=== PATIENT | female | born 1995 | race Caucasian/White ===

== ENCOUNTER 2016-06-06 09:30 | Emergency (ER) | payer OTHER ==
[2016-06-06] MEDS ORDERED: LORazepam 2 MG/ML INJ IVP ONE ×2 (09:53→10:56)
[2016-06-06] MEDS ORDERED: NS 1,000 ML IV ONE ×2 (09:53→10:56)
[2016-06-06] MEDS ORDERED: ONDANSETRON 4 MG/2 ML VIAL IVP ONE ×2 (09:53→11:30)
--- NOTE | 2016-06-06 10:06 | EDPHY ---
H & P Smoking Status: Current some day smoker Time Seen by Provider: 06/06/16 09:38 HPI/ROS: CHIEF COMPLAINT: Vomiting, hyperventilating HISTORY OF PRESENT ILLNESS: 20-year-old female presents to the emergency department with multiple episodes of vomiting since early this morning. The patient states that she drank alcohol until about 1:30 a.m.. She began vomiting few hours later. She states this has happened to her in the past when she drinks alcohol. She does admit to smoking marijuana as well. No other illicit drug use. She denies chest pain or difficulty breathing. Denies abdominal pain. She denies diarrhea. She does not think she has urinated since yesterday. She feels extremely anxious. Her hands are cramping and she feels that they are tingly and numb. No headache. No reported trauma. No blood in her emesis. No melena. REVIEW OF SYSTEMS: Constitutional: No fever, no chills. Eyes: No double or blurry vision. ENT: No sore throat. Respiratory: No cough, no shortness of breath. Cardiac: No chest pain. Gastrointestinal: Vomiting as above. No diarrhea. No abdominal pain. Genitourinary: No dysuria. Musculoskeletal: No neck or back pain. Skin: No rashes. Neurological: No headache. (Ronna Hurt M) Past Medical/Surgical History: Negative (Licha,Ronna M) Social History: Single and lives in [place] (Ronna Hurt M) Physical Exam: General Appearance: Alert, extremely anxious, hyperventilating. Vital signs are stable. Mother and father at bedside. Eyes: Pupils equal and round. Extraocular motions are all intact. ENT: Mouth: Mucous membranes very dry. Respiratory: No wheezing, rhonchi, or rales, lungs are clear to auscultation. Cardiovascular: Regular rate and rhythm. Gastrointestinal: Abdomen is soft and nontender, no masses, no rebound or guarding, bowel sounds normal. Neurological: Alert and oriented x 3, cranial nerves II through XII grossly intact Skin: Warm and dry, no rashes. Musculoskeletal: Nontender to palpate along the cervical, thoracic or lumbar spine. Neck is supple. Extremities: Full range of motion and no peripheral edema. Psychiatric: Patient is oriented X 3, there is no agitation. (LichaRonna M) Constitutional: Initial Vital Signs Temperature (C) 36.7 C 06/06/16 09:33 Heart Rate 92 06/06/16 09:33 Respiratory Rate 20 06/06/16 09:33 Blood Pressure 102/70 06/06/16 09:33 O2 Sat (%) 99 06/06/16 09:33 O2 Delivery Mode Room Air Allergies/Adverse Reactions: No Known Allergies Allergy (Unverified 06/06/16 09:32) Home Medications: Medication Instructions Recorded Ondansetron Odt [Zofran Odt] 4 mg PO Q4PRN #8 tab 06/06/16 Medical Decision Making ED Course/Re-evaluation: 20-year-old female presents to the emergency department with multiple episodes of vomiting. An IV was established and the patient was given 4 mg Zofran IV as well as 0.5 mg of Ativan since she was hyperventilating. These medications were repeated as well as 2 L of IV normal saline. The patient was given multiple attempts at p.o. challenge. She continued to vomit. She was given 10 mg of Reglan IV and was feeling much better. She was tolerating p.o. fluids upon discharge is comfortable being discharged home. Laboratory studies are unremarkable. I do not think imaging studies are necessary. She has no abdominal pain. She is being discharged home with her mother. (Ronna Hurt) Differential Diagnosis: Including but not limited to gastritis, dehydration, gastroenteritis, acute appendicitis (Ronna Hurt) Other Provider: PHYSICIAN DOCUMENTATION: The patient was evaluated and managed by the Physician [facility]. My co- signature indicates that I have reviewed this chart and I agree with the findings and plan of care as documented. I am the secondary supervising physician. (Akshat Santiago) - Data Points Laboratory Results: Laboratory Results 06/06/16 10:07 06/06/16 10:07 06/06/16 06/06/16 10:07 10:07 WBC 9.21 10^3/uL 10^3/uL (3.80-9.50) RBC 4.51 10^6/uL 10^6/uL (4.18-5.33) Hgb 14.6 g/dL g/dL (12.6-16.3) Hct 41.0 % % (38.0-47.0) MCV 90.9 fL fL (81.5-99.8) MCH 32.4 pg pg (27.9-34.1) MCHC 35.6 g/dL g/dL (32.4-36.7) RDW 11.8 % % (11.5-15.2) Plt Count 285 10^3/uL 10^3/uL (150-400) MPV 9.6 fL fL (8.7-11.7) Neut % (Auto) 73.0 % % (39.3-74.2) Lymph % (Auto) 21.5 % % (15.0-45.0) [place] % (Auto) 4.5 % % (4.5-13.0) Eos % (Auto) 0.2 % L % (0.6-7.6) Baso % (Auto) 0.5 % % (0.3-1.7) Nucleat RBC Rel Count 0.0 % % (0.0-0.2) Absolute Neuts (auto) 6.72 10^3/uL H 10^3/uL (1.70-6.50) Absolute Lymphs (auto) 1.98 10^3/uL 10^3/uL (1.00-3.00) Absolute Monos (auto) 0.41 10^3/uL 10^3/uL (0.30-0.80) Absolute Eos (auto) 0.02 10^3/uL L 10^3/uL (0.03-0.40) Absolute Basos (auto) 0.05 10^3/uL 10^3/uL (0.02-0.10) Absolute Nucleated RBC 0.00 10^3/uL 10^3/uL (0-0.01) Immature Gran % 0.3 % % (0.0-1.1) Immature Gran # 0.03 10^3/uL 10^3/uL (0.00-0.10) Sodium 138 mEq/L mEq/L (134-144) Potassium 3.7 mEq/L mEq/L (3.5-5.2) Chloride 104 mEq/L mEq/L (97-110) Carbon Dioxide 18 mEq/l L mEq/l (22-31) Anion Gap 16 mEq/L mEq/L (8-16) BUN 11 mg/dL mg/dL (7-23) Creatinine 0.7 mg/dL mg/dL (0.6-1.0) Estimated GFR > 60 Glucose 111 mg/dL H mg/dL (70-100) Calcium 10.0 mg/dL mg/dL (8.5-10.4) Medications Given: Discontinued Medications Sodium Chloride (Ns) 1,000 mls @ 0 mls/hr IV ONCE ONE PRN Reason: Wide Open Stop: 06/06/16 09:54 Last Admin: 06/06/16 10:09 Dose: 1,000 mls Sodium Chloride (Ns) 1,000 mls @ 0 mls/hr IV ONCE ONE PRN Reason: Wide Open Stop: 06/06/16 10:57 Last Admin: 06/06/16 11:14 Dose: 1,000 mls Lorazepam (Ativan Injection) 0.5 mg IVP EDNOW ONE Stop: 06/06/16 09:54 Last Admin: 06/06/16 10:15 Dose: 0.5 mg Lorazepam (Ativan Injection) 0.5 mg IVP EDNOW ONE Stop: 06/06/16 10:57 Last Admin: 06/06/16 11:15 Dose: 0.5 mg Metoclopramide HCl (Reglan Injection) 10 mg IVP EDNOW ONE Stop: 06/06/16 12:48 Last Admin: 06/06/16 12:56 Dose: 10 mg Ondansetron HCl (Zofran) 4 mg IVP EDNOW ONE Stop: 06/06/16 09:54 Last Admin: 06/06/16 10:09 Dose: 4 mg Ondansetron HCl (Zofran) 4 mg IVP EDNOW ONE Stop: 06/06/16 11:31 Last Admin: 06/06/16 11:32 Dose: 4 mg Departure - Departure Disposition: Home, Routine, Self-Care Clinical Impression: Dehydration Gastritis Qualifiers: Gastritis type: unspecified gastritis Chronicity: acute Gastritis bleeding: without bleeding Qualified Code(s): K29.00 - Acute gastritis without bleeding Condition: Good Instructions: Dehydration (ED), Acute Nausea and Vomiting (ED) Additional Instructions: Clear liquids and slowly advance diet as tolerated. Zofran as needed for nausea. Return to the Emergency Department immediately for increasing pain, fever, vomiting, or if not completely better in 8-12 hours. Referrals: Boni Santana [Primary Care Provider] - As per Instructions Prescriptions: Ondansetron Odt [Zofran Odt] 4 mg PO Q4PRN #8 tab
[2016-06-06] MEDS ORDERED: ONDANSETRON 4 MG/2 ML VIAL ONE (10:08)
[2016-06-06 10:19] LABS: % IMMATURE GRANULYOCYTES 0.3 % (0.0-1.1); ABSOLUTE IMMATURE GRANULOCYTES 0.03 10^3/uL (0.00-0.10); ADD DIFF? NO; ADD MORPH? NO; ADD SCAN? NO; ATYPICAL LYMPHOCYTE FLAG 30 (0-99); FRAGMENT RBC FLAG 0 (0-99); HEMOGLOBIN 14.6 g/dL (12.6-16.3); LEFT SHIFT FLG 0 (0-99); LIPEMIA HEMOLYSIS FLAG 90 (0-99); MEAN CELL HEMOGLOBIN 32.4 pg (27.9-34.1); MEAN CELL HEMOGLOBIN CONCENTR. 35.6 g/dL (32.4-36.7); MEAN CELL VOLUME 90.9 fL (81.5-99.8); MEAN PLATELET VOLUME 9.6 fL (8.7-11.7); PLATELET CLUMPS FLAG 10 (0-99); PLATELET COUNT 285 10^3/uL (150-400); RED BLOOD CELL COUNT 4.51 10^6/uL (4.18-5.33); RED CELL DISTRIBUTION WIDTH 11.8 % (11.5-15.2)
[2016-06-06 10:34] VITALS: RESP 16
[2016-06-06 10:45] LABS: ANION GAP 16 mEq/L (8-16); CARBON DIOXIDE 18 mEq/l (22-31); CHLORIDE 104 mEq/L (97-110); CREATININE 0.7 mg/dL (0.6-1.0); GLOMERULAR FILTRATION RATE > 60; GLUCOSE 111 mg/dL (70-100); POTASSIUM 3.7 mEq/L (3.5-5.2); SODIUM 138 mEq/L (134-144)
[2016-06-06] MEDS ORDERED: METOCLOPRAMIDE 10 MG/2 ML VIAL IVP ONE (12:47)
[2016-06-06 14:23] VITALS: BP 108/58; PULSE 92; TEMP 97.7; O2SAT 95
== END 2016-06-06 14:23 | disposition home or self-care (01) ==
DX: K29.00 Acute gastritis without bleeding (principal); E86.0 Dehydration; F17.200 Nicotine dependence, unspecified, uncomplicated
CPT/HCPCS: 96374; J2060; J2405; J2765